=== PATIENT | male | born 1955 | race Caucasian/White ===

== ENCOUNTER 2023-10-31 07:26 | Emergency (ER) | payer MEDICARE, SELFPAY ==
[2023-10-31 07:35] VITALS: BP 176/97; PULSE 93; RESP 18; TEMP 36.6; O2SAT 97; BMI 29.8
[2023-10-31 07:42] VITALS: O2SAT 96
[2023-10-31 07:44] VITALS: PULSE 89
[2023-10-31 07:45] VITALS: BP 160/84; PULSE 91; RESP 38; O2SAT 95
[2023-10-31 07:50] VITALS: PULSE 100; RESP 28; O2SAT 92
--- NOTE | 2023-10-31 08:06 | ED.ABDPAIN1 ---
HPI - Abdominal Pain General Chief Complaint: Abdominal Pain Stated Complaint: ADB PAIN Time Seen by Provider: 10/31/23 08:05 Source: patient Mode of arrival: walk-in Limitations: no limitations History of Present Illness HPI narrative: This patient is here for evaluation of lower abdominal pain. He says he has had it daily for at least the last 7 or 8 days. There is no associated nausea vomiting or diarrhea. He did have some constipation, did not move his bowels for approximately 1 week so he took a laxative. He had a loose stool at that time. He has a history of prostate cancer treated with seeds about 10 years ago. He has urgency of urination and a feeling that he has to go. His family doctor checked him with a urine and CBC this week in the office. He said the urine test looked normal. They did not place him on an antibiotic. He has never had a TURP. He does not have fever shakes or chills. The pain is in the suprapubic area. Related Data Allergies Allergy/AdvReac Type Severity Reaction Status Date / Time No Known Drug Allergies Allergy Verified 10/31/23 07:35 PFSH PFSH Social History Smoking status: Current every day smoker Exam Narrative Exam Narrative: Very pleasant gentleman awake alert moves about comfortably. Vital signs are stable he is afebrile.. Problem focused examination shows his heart and lung examination to be normal. In a supine position his abdomen shows mild tenderness in the left lower suprapubic area. There is no guarding rebound or rigidity. There is no peritoneal findings. No tenderness in the right or the left upper quadrant. Good bowel sounds are noted. Incidentally he did have a bowel movement while here in the ER. Constitutional Vital Signs, click to edit/add: Last Vital Signs Temp 97.8 F 10/31/23 07:35 Pulse 100 H 10/31/23 07:50 Resp 28 H 10/31/23 07:50 BP 160/84 H 10/31/23 07:45 Pulse Ox 92 L 10/31/23 07:50 O2 Del Method Room Air 10/31/23 07:35 Course Vital Signs Vital signs: Vital Signs Temperature 97.8 F 10/31/23 07:35 Pulse Rate 93 H 10/31/23 07:35 Respiratory Rate 18 10/31/23 07:35 Blood Pressure 176/97 H 10/31/23 07:35 Pulse Oximetry 97 10/31/23 07:35 Oxygen Delivery Method Room Air 10/31/23 07:35 Temperature 97.8 F 10/31/23 07:35 Pulse Rate 100 H 10/31/23 07:50 Respiratory Rate 28 H 10/31/23 07:50 Blood Pressure 160/84 H 10/31/23 07:45 Pulse Oximetry 92 L 10/31/23 07:50 Oxygen Delivery Method Room Air 10/31/23 07:35 MDM - Abdominal Pain MDM Narrative Medical decision making narrative: This very pleasant gentleman's CAT scan does confirm diverticulitis of the sigmoid colon. There is no perforation or abscess. His white blood cell count is noted. He is reliable and does have a local primary care doctor. We will start him on Cipro and Flagyl. He was advised to return to emergency room should he have worsening of his symptoms bowel rest was also advised Lab Data Labs: Lab Results 10/31/23 10/31/23 Range/Units 07:43 08:01 WBC 11.7 H (4.0-11.0) 10^3/uL RBC 5.31 (4.70-6.10) 10^6/uL Hgb 15.8 (14.0-18.0) g/dL Hct 47.9 (42.0-54.0) % MCV 90.2 (80.0-94.0) fL MCH 29.8 (25.9-34.0) pg MCHC 33.0 (29.9-35.2) g/dL RDW 14.2 (11.0-15.0) % Plt Count 262 (150-450) 10^3/uL MPV 11.1 (9.5-13.5) fL Neut % (Auto) 74.9 (43.0-75.0) % Lymph % (Auto) 13.1 L (20.5-60.0) % [place] % (Auto) 10.4 (1.7-12.0) % Eos % (Auto) 0.5 L (0.9-7.0) % Baso % (Auto) 0.8 (0.2-2.0) % Neut # (Auto) 8.8 H (1.4-6.5) 10^3/uL Lymph # (Auto) 1.5 (1.2-3.8) 10^3/uL [place] # (Auto) 1.2 H (0.3-0.8) 10^3/uL Eos # (Auto) 0.1 (0.0-0.7) 10^3/uL Baso # (Auto) 0.1 (0.0-0.1) 10^3/uL Abs Immat Gran (auto) 0.04 H (0.00-0.03) 10^3/uL Imm/Tot Granulo (auto) 0.3 (0.0-0.5) % Sodium 138 (136-145) mmol/L Potassium 3.8 (3.5-5.1) mmol/L Chloride 100 (98-107) mmol/L Carbon Dioxide 25.7 (21.0-32.0) mmol/L Anion Gap 16.1 BUN 19.0 H (7.0-18.0) mg/dL Creatinine 1.40 H (0.70-1.30) mg/dL Est GFR ( Amer) >60 (>=60) Est GFR (Non-Af Amer) 50 L (>=60) BUN/Creatinine Ratio 13.6 Glucose 152 H (74-106) mg/dL Calcium 8.9 (8.5-10.1) mg/dL Total Bilirubin 0.5 (0.2-1.0) mg/dL AST 14 L (15-37) U/L ALT 36 (16-63) U/L Alkaline Phosphatase 111 (46-116) U/L Total Protein 8.6 H (6.4-8.2) g/dL Albumin 3.4 (3.4-5.0) g/dL Globulin 5.2 g/dL Albumin/Globulin Ratio 0.7 Urine Color Yellow (YELLOW) Urine Clarity Clear (CLEAR) Urine pH 6.5 (5.0-9.0) Ur Specific Bivins 1.015 (1.005-1.025) Urine Protein Negative (NEG/TRACE) mg/dL Urine Glucose (UA) Negative (NEGATIVE) mg/dL Urine Ketones Negative (NEGATIVE) mg/dL Urine Occult Blood Trace-i (NEGATIVE) Urine Nitrite Negative (NEGATIVE) Urine Bilirubin Negative (NEGATIVE) Urine Urobilinogen 0.2 (0.2-1.0) EU/dL Ur Leukocyte Esterase Negative (NEGATIVE) Urine RBC 0-2 (0-2) #/HPF Urine WBC None seen (NONE SEEN) #/HPF Ur Squamous Epith Cells None seen (NONE/RARE) #/LPF Urine Bacteria None seen (NONE SEEN) #/HPF Urine Mucus None seen (NONE SEEN) Ur Culture Indicated? No Discharge Plan Discharge Chief Complaint: Abdominal Pain Clinical Impression: Diverticulitis Patient Disposition: Home, Self-Care Time of Disposition Decision: 10:30 Additional Instructions: Clear fluids only for 24 hours. Then a soft diet for 24 hours, Cipro/Flagyl/return for any problems/see your primary care doctor this week Stand Alone Forms: Portal Instructions Referrals: Physician,Non-Staff, MD [Primary Care Provider] - 1 week
--- NOTE | 2023-10-31 08:07 | CT_ITS ---
[address] [address] Patient Name: JULIUS GUERIN MRN: [id number] date: 1955 Sex: M Assigned Patient Location: ER Current Patient Location: Accession/Order Number: [id number] Exam Date: 10/31/2023 09:35 Report Date: 10/31/2023 10:13 At the request of: SHIRA DICK Procedure: CT abdomen pelvis w con EXAMINATION: CT abdomen pelvis w con HISTORY: Abdominal pain , constipation, pain with urination COMPARISON: CT abdomen pelvis 10/24/2011 TECHNIQUE: Axial, Coronal, and Sagittal images were obtained without and/or with IV contrast as indicated by examination type. Dose reduction techniques were achieved by using automated exposure control and/or adjustment of mA and/or kV according to patient size and/or use of iterative reconstruction technique. FINDINGS: LUNG BASES: No visible pulmonary or pleural disease. LIVER: No enlargement, atrophy, suspicious density, or significant focal lesion. BILIARY: No dilatation or calcification. PANCREAS: No lesion, fluid collection, or abnormal duct dilatation. SPLEEN: No enlargement or focal lesion. ADRENALS: 2.5 cm left adrenal mass. KIDNEYS: No mass, obstruction, or calcification. BOWEL/MESENTERY: Multiple diverticula involving the sigmoid colon with circumferential wall thickening of the sigmoid and a 3.1 cm low-density inflamed diverticulum versus phlegmonous changes within lower right pelvis adjacent the sigmoid. No free air or free fluid. AORTA/VASCULAR: Moderate atherosclerotic disease of distal aorta and iliac arteries. No aneurysm or dissection. RETROPERITONEUM: No mass or adenopathy. LYMPH NODES: No adenopathy. URINARY BLADDER: No visible focal wall thickening, lesion, or calculus. PELVIC ORGANS: Prior radioactive seeding of the prostate. ABDOMINAL WALL: No mass or hernia. BONES: Multilevel marked degenerative disc disease of lumbar spine. OTHER: Negative. CT/CT abdomen pelvis w con IMPRESSION: 1. Acute diverticulitis of sigmoid colon with suspected mild phlegmonous changes. No abscess. 2. No bowel obstruction, free air, free fluid. 3. 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 Electronically authenticated by: RAMAN PIMENTEL Date: 10/31/2023 10:13
[2023-10-31 08:36] LABS: Basophils Absolute Auto 0.1 10^3/uL (0.0-0.1); Basophils Percent Auto 0.8 % (0.2-2.0); Eosinophils Absolute Auto 0.1 10^3/uL (0.0-0.7); Eosinophils Percent Auto 0.5 % (0.9-7.0); Hematocrit 47.9 % (42.0-54.0); Hemoglobin 15.8 g/dL (14.0-18.0); Immature Granulocytes Abs Auto 0.04 10^3/uL (0.00-0.03); Immature Granulocytes Pct Auto 0.3 % (0.0-0.5); Lymphocytes Absolute Auto 1.5 10^3/uL (1.2-3.8); Lymphocytes Percent Auto 13.1 % (20.5-60.0); Mean Corpuscular Hemoglobin 29.8 pg (25.9-34.0); Mean Corpuscular Volume 90.2 fL (80.0-94.0); Mean Platelet Volume 11.1 fL (9.5-13.5); Monocytes Absolute Auto 1.2 10^3/uL (0.3-0.8); Monocytes Percent Auto 10.4 % (1.7-12.0); Neutrophils Absolute Auto 8.8 10^3/uL (1.4-6.5); Neutrophils Percent Auto 74.9 % (43.0-75.0); Platelet Count 262 10^3/uL (150-450); Red Blood Count 5.31 10^6/uL (4.70-6.10); Red Cell Distribution Width 14.2 % (11.0-15.0); White Blood Count 11.7 10^3/uL (4.0-11.0)
[2023-10-31 08:37] LABS: Bilirubin Urine NEGATIVE (NEGATIVE); Blood Urine TRACE-I (NEGATIVE); Clarity Urine CLEAR (CLEAR); Color Urine YELLOW (YELLOW); Glucose Urine UA NEGATIVE (NEGATIVE); Ketones Urine NEGATIVE (NEGATIVE); Leukocyte Esterase Urine NEGATIVE (NEGATIVE); Nitrite Urine NEGATIVE (NEGATIVE); Protein Urine NEGATIVE (NEG/TRACE); Specific Gravity Urine 1.015 (1.005-1.025); Urobilinogen Urine 0.2 EU/dL (0.2-1.0); pH Urine 6.5 (5.0-9.0)
[2023-10-31 09:05] LABS: Alanine Aminotransferase 36 U/L (16-63); Albumin Globulin Ratio 0.7; Albumin Level 3.4 g/dL (3.4-5.0); Alkaline Phosphatase 111 U/L (46-116); Anion Gap 16.1; Aspartate Amino Transferase 14 U/L (15-37); BUN Creatinine Ratio 13.6; Bilirubin Total 0.5 mg/dL (0.2-1.0); Calcium 8.9 mg/dL (8.5-10.1); Carbon Dioxide 25.7 mmol/L (21.0-32.0); Chloride 100 mmol/L (98-107); Estimated GFR (African America >60 (>=60); Estimated GFR (Non-African Ame 50 (>=60); Globulin 5.2 g/dL; Glucose 152 mg/dL (74-106); Potassium 3.8 mmol/L (3.5-5.1); Sodium 138 mmol/L (136-145); Total Protein 8.6 g/dL (6.4-8.2)
[2023-10-31 09:09] LABS: Urine Microscopic Indicated YES
[2023-10-31 09:16] LABS: WBC Urine NONE SEEN #/HPF (NONE SEEN)
[2023-10-31 09:17] LABS: Bacteria Urine NONE SEEN #/HPF (NONE SEEN); Mucus Urine NONE SEEN (NONE SEEN); RBC Urine 0-2 #/HPF (0-2); Squamous Epithelial Cell Urine NONE SEEN #/LPF (NONE/RARE)
[2023-10-31 09:24] LABS: Urine Culture Indicated NO
[2023-10-31] MEDS: CIPROFLOXACIN HCL 500 MG TABLET PO (10:45)
[2023-10-31] MEDS: METRONIDAZOLE 250 MG TABLET 500 MG PO (10:45)
--- NOTE | 2023-10-31 17:11 | ECG_ITS ---
[facility] Test Date: 2023-10-31 Pat Name: JULIUS GUERIN Department: Room: - Gender: Male Decatizer: : 1955 Requested By: Order Number: [id number] Reading MD: GUEVARA HOLLY Measurements Intervals [place] Rate: 88 P: 71 ND: 178 QRS: -8 QRSD: 88 T: 12 QT: 360 QTc: 406 Interpretive Statements 1100 Sinus rhythm 1108 Marked sinus arrhythmia [id number] Inferior myocardial infarction with posterior extension, probably old 9150 abnormal ECG No previous ECG available for comparison Electronically Signed On 11-01-2023 7:33:54 EST by GUEVARA HOLLY
== END 2023-10-31 10:54 | disposition home or self-care (01) ==
PROVIDERS: Emergency Provider Emergency Medicine Emergency Medical Services
DX: K57.32 Diverticulitis of large intestine without perforation or abscess without bleeding (principal); C61 Malignant neoplasm of prostate; F17.210 Nicotine dependence, cigarettes, uncomplicated
CPT/HCPCS: 36415; 74177; 80053; 81001; 85025; 93005; 99284; Q9967